=== PATIENT | male | born 1955 | race Caucasian/White ===

== ENCOUNTER 2025-03-13 14:03 | Emergency (ER) | payer BC ==
[~2025-03-13] VITALS: Ht 177.8 cm; Wt 84.1 kg
--- NOTE | 2025-03-13 18:16 | Physician Documentation ---
History of Present Illness ~ Chief Complaint: See Chief Complaint Stated Complaint: STOMACH PROBLEMS Time Seen by MD: 15:50 HPI Patient is seen today with complaints of generalized fatigue and generalized abdominal/stomach upset. Patient states he is unable to tolerate eating much food and has lost 10 lb over the last few weeks. Patient denies previously having had an upper endoscopy or colonoscopy but states he did have Cologuard test done recently that returned unremarkable. Patient does admit to history of very elevated LFTs as well as abdominal aortic aneurysm. Patient denies any chest pain or shortness of breath or vomiting or diarrhea. Patient does admit to some baseline nausea. Medication Reconciliation Allergies: Coded Allergies: No Known Allergies (Unverified , 03/13/25) Review of Systems Constitutional: Denies: chills, fever, weakness Eyes: Denies: pain, blurred vision ENT: Denies: ear pain, nose pain, throat pain, mouth pain Respiratory: Denies: cough, shortness of breath Cardiovascular: Denies: chest pain, palpitations Gastrointestinal: Denies: abdominal pain, nausea, vomiting Genitourinary: Denies: burning, dysuria Male Genitalia: Denies: penile discharge, testicular pain Neurological: Denies: headache, dizziness Musculoskeletal: Denies: pain, swelling Integumentary: Denies: rash, lesions Allergic/Immunologic: Denies: hives, itching Hematologic/Lymphatic: Denies: no symptoms reported Psychiatric: Denies: depression, anxiety Physical Exam Vital Signs: Temperature: 97.1, Source: Temporal, Heart Rate: 98, Respiratory Rate: 18, BP: 156/107, Pulse Oximetry: 99, Weight: 84.090 Oxygen Flow Rate: 0 Physical Exam General: Awake and Alert, no acute distress. HEENT: Conjunctiva pink, Sclera clear, Mucus Membranes moist. Neck: Supple without masses and tenderness. Resp: Unlabored. Lungs clear to auscultation bilaterally. Heart: Regular Rate and rhythm, normal S1 and S2 without murmur, rub or gallop. Abdomen: Patient on exam does have mild diffuse tenderness to palpation without any significant guarding and no rebound and mild right upper quadrant and epigastric tenderness to palpation. No masses. Abdomen is soft and nondistended. Extremities: No cyanosis,clubbing or edema. Skin: Warm and Dry. Progress Results/Orders Results/Orders Orders - ARIS DO MD Ultrasound Of Abdomen (03/13/25 20:18) Page Hospitalist (03/13/25 21:38) Fill Out Med Reconciliation (03/13/25 21:38) Completed Orders - ARIS DO MD Ultrasound Of Abdomen (03/13/25 20:18) Normal Saline 1000ml (0.9% Sodium Chlori (03/13/25 20:25) Piperacillin/Tazo 3.375gm/50ml (Zosyn 3. (03/13/25 21:40) Morphine 4mg/Ml Inj. (Morphine Inj.) (03/14/25 03:20) Normal Saline 1000ml (0.9% Sodium Chlori (03/14/25 04:50) Vital Signs 03/13/25 03/13/25 03/13/25 03/13/25 14:06 16:00 18:03 19:03 Temp 97.1 97.9 Pulse 98 74 62 Resp 18 18 18 16 B/P (MAP) 156/107 175/95 (121) 160/85 (110) Pulse Ox 99 97 98 O2 Flow Rate 0 0 0 03/13/25 03/13/25 03/13/25 03/13/25 20:11 21:01 22:14 23:15 Temp 97.9 Pulse 79 60 63 52 Resp 16 16 16 B/P (MAP) 154/90 (111) 147/79 (101) 159/81 (107) Pulse Ox 99 99 96 O2 Flow Rate 0 0 0 03/14/25 03/14/25 03/14/25 03/14/25 00:07 02:06 05:11 06:30 Temp 97.9 Pulse 55 54 53 54 Resp 16 B/P (MAP) 163/74 (103) 132/53 (79) 135/79 (97) 144/73 (96) Pulse Ox 94 94 98 99 O2 Flow Rate 0 0 0 0 03/14/25 03/14/25 03/14/25 03/14/25 07:16 07:30 08:30 09:30 Pulse 60 72 57 Resp 18 18 16 B/P (MAP) 144/73 (96) 138/82 (100) 139/95 (110) Pulse Ox 98 98 98 O2 Flow Rate 0 0 0 03/14/25 03/14/25 03/14/2503/14/25 10:30 11:30 12:30 13:30 Pulse 54 66 64 69 Resp 16 18 20 18 B/P (MAP) 144/73 (96) 151/59 (89) 170/64 (99) 149/74 (99) Pulse Ox 94 94 97 94 O2 Flow Rate 0 0 0 0 03/14/25 03/14/25 03/14/25 14:30 15:22 15:43 Temp 97.9 Pulse 64 66 66 Resp 16 16 16 B/P (MAP) 138/72 (94) 148/86 (106) 148/86 Pulse Ox 96 95 95 O2 Flow Rate 0 0 Laboratory Tests Test 03/13/25 18:29 03/13/25 20:14 White Blood Count 7.8 Red Blood Count 5.64 Hemoglobin 15.6 Hematocrit 45.8 Mean Corpuscular Volume 81.3 Mean Corpuscular Hemoglobin 27.7 Mean Corpuscular Hemoglobin Concent 34.0 Red Cell Distribution Width 17.7 H Platelet Count 301 Mean Platelet Volume 7.4 Neutrophils (%) (Auto) 68.8 Lymphocytes (%) (Auto) 19.5 L Monocytes (%) (Auto) 8.1 Eosinophils (%) (Auto) 2.8 Basophils (%) (Auto) 0.8 Neutrophils # (Auto) 5.4 Lymphocytes # (Auto) 1.5 Monocytes # (Auto) 0.6 Eosinophils # (Auto) 0.2 Basophils # (Auto) 0.1 CBC Comment Sodium Level 138 Potassium Level 3.9 Chloride Level 101 Carbon Dioxide Level 26.1 Anion Gap 11 Blood Urea Nitrogen 8 Creatinine 1.03 Estimated GFR/1.73 m2 72 BUN/Creatinine Ratio 7.8 L Glucose Level 100 Calcium Level 9.5 Magnesium Level 2.1 Total Bilirubin 5.0 H Aspartate Amino Transf (AST/SGOT) 268 H Alanine Aminotransferase (ALT/SGPT) 511 H Alkaline Phosphatase 477 H Troponin I High Sensitivity 5 5 Pro-B-Type Natriuretic Peptide 52 Total Protein 7.5 Albumin 3.5 Globulin 4.0 Albumin/Globulin Ratio 0.9 L Lipase > 375 H Chemistry Comments Troponin I High Sens Percent Delta 0 Troponin I Hi Sens Absolute Change 0 EKG/XRAY/CT/US/VASC/MRI Ultrasound : Impression ULTRASOUND Patient: WHITNEY LAMA Medical Record: [id number] JOSEPH BEREA : 1955, Age: 69 Sex: Male Location: ER Patient Status: [facility] ER Service Date/Time: 03/13/252017 Ordering Physician: ARIS DO MD Exam: ULTRASOUND OF ABDOMEN INDICATION: suspected gallstone pancreatitis TECHNIQUE: Multiple real-time sonographic images were obtained of the Abdomen. COMPARISON: CT CT ABDOMEN PELVIS W/ IV CONTRAST on DOS: 03/13/25 FINDINGS: PANCREAS: Visualized portions are unremarkable. LIVER: Normal in size and echogenicity. No mass. GALLBLADDER: Gallstone is noted. Gallbladder wall measures 2.3 mm. Sludge is noted. Positive Florentino's sign. COMMON BILE DUCT: Measures 13 mm. RIGHT KIDNEY: Measures 10.6 cm. Normal in echogenicity. No mass. No urinary stones. No hydronephrosis. Aorta: normal limits. IVC: normal limits. OTHERS: No free fluid. IMPRESSION: 1. Acute cholecystitis is suspected with gallstone and positive Florentino's sign and slight thickening of gallbladder wall. 2. Nonspecific significant dilation of CBD. Consider MRCP if there is continued concern. Electronically Signed by:YAZMIN QUINONES MD Date & Time: 03/13/252209 Dictated by: YAZMIN QUINONES MD Dictation date and time: 03/13/252209 Primary Care Provider: NO PRIMARY CARE PROVIDER cc: ARIS DO MD ~ Medical Decision Making Findings Patient is seen today with complaints of generalized fatigue and generalized abdominal/stomach upset. Patient states he is unable to tolerate eating much food and has lost 10 lb over the last few weeks. Patient denies previously having had an upper endoscopy or colonoscopy but states he did have Cologuard test done recently that returned unremarkable. Patient does admit to history of very elevated LFTs as well as abdominal aortic aneurysm. Patient denies any chest pain or shortness of breath or vomiting or diarrhea. Patient does admit to some baseline nausea. Patient did have evidence of cholecystitis on ultrasound and labs indicate pancreatitis with possible obstructing stone. Dr. Do assuming care of patient: . Patient with evidence of choledocholithiasis leading to gallstone pancreatitis. We do not have the ability for ERCP. We are arranging transfer Departure Disposition: 51 HOSPICE/MEDICAL FACILITY Impression: Primary Impression: Cholecystitis Additional Impression: Pancreatitis due to biliary obstruction Qualified Codes: K85.10 - Biliary acute pancreatitis without necrosis or infection Condition: Stable Additional Instructions: Patient did have evidence of cholecystitis on ultrasound and labs indicate pancreatitis with possible obstructing stone. Patient was admitted for further eval consult with hospitalist and surgical team consulted. Referrals: NO PRIMARY CARE PROVIDER (PCP) Signature Scribe Signature: No scribe Attestation: The note accurately reflects work and decisions made by me.Aris Do MD 03/15/25 02:47 No scribe DAGOBERTO HUDSON Mar 13, 2025 18:16 ARIS DO MD Mar 15, 2025 02:47
[2025-03-13 18:40] LABS: MEAN PLATELET VOLUME 7.4 FL (7.4-10.4); RED CELL DISTRIBUTION WIDTH 17.7 % (11.5-14.5)
[2025-03-13] MEDS ORDERED: iohexol 300mg/ml 100ml inj. ONE (18:47)
[2025-03-13 18:55] LABS: CREATININE 1.03 MG/DL (0.60-1.10); TOTAL CARBON DIOXIDE 26.1 MMOL/L (24-32); eCRCL 70 ML/MIN; eGFR 72 ML/MIN
[2025-03-13 19:03] LABS: PRO BRAIN NATRIURETIC PEPTIDE 52 PG/ML (0-125)
--- NOTE | 2025-03-13 20:27 | RADIOLOGY REPORT ---
Exam: CT CT ABDOMEN PELVIS W/ IV CONTRAST History: abd pain COMPARISON: None Technique: Multidetector spiral CT of the abdomen and pelvis was performed from lung bases to pubic s ymphysis. Intravenous contrast was administered during this examination. Portal venous imaging was obtained. Axial, coronal and sagittal multiplanar reformats were performed by the technologist on a separate workstation. Radiation Dose : 1. Abdomen/Pelvis: CTDIvol 19.8 mGy, DLP 1052 mGy*cm. CONTRAST: Type of contrast: Omnipaque 350 Contrast injected: 100 ml Findings: Lung Bases: No acute or significant lung base finding. Normal heart size. No pleural or pericardial effusion. Liver: The liver is normal in size. No focal lesions. Normal hepatic vascular enhancement. Gallbladder and Biliary Tree: Grossly unremarkable gallbladder. Dilated common bile duct measuring u p to 1.7 cm. Spleen: Unremarkable Pancreas: The pancreas is normal in appearance without focal lesions or abnormal enhancement. Adrenal Glands: Unremarkable Kidneys: No hydronephrosis. Bladder: Unremarkable Bowel: The stomach is grossly normal in appearance. Small bowel and colon are normal in caliber and d istribution. The appendix is not visualized; however, no secondary findings of acute appendicitis id entified. Ascites: Absent Lymphadenopathy: No mesenteric, retroperitoneal or periportal lymphadenopathy. Abdominal Wall and Mesentery: Unremarkable. Vasculature: Infrarenal abdominal aortic aneurysm sac measures up to 5.1 cm in greatest diameter and with multiple focal saccular outpouching segments. No evidence of dissection. Pelvic Organs: Unremarkable Musculoskeletal: No aggressive focal bony lesions, acute fractures or dislocation. IMPRESSION: 1. Dilated common bile duct measuring up to 1.7 cm. Recommend correlation with MRCP. 2. Infrarenal abdominal aortic aneurysm sac measures up to 5.1 cm in greatest diameter and with multi ple focal saccular outpouching segments. No evidence of dissection. Radiation optimization: All CT scans at this facility use at least one of these dose optimization [place] hniques: automated exposure control mA and/or kV adjustment per patient size (includes targeted exam s where dose is matched to clinical indication) or iterative reconstruction.
[2025-03-13] MEDS: normal saline 1000ML IV soln IVB ONE (20:35)
[2025-03-13] MEDS: piperacillin/tazo 3.375gm/50ml 50 ML IV ONE (22:09)
--- NOTE | 2025-03-13 22:12 | RADIOLOGY REPORT ---
INDICATION: suspected gallstone pancreatitis TECHNIQUE: Multiple real-time sonographic images were obtained of the Abdomen. COMPARISON: CT CT ABDOMEN PELVIS W/ IV CONTRAST on DOS: 03/13/25 FINDINGS: PANCREAS: Visualized portions are unremarkable. LIVER: Normal in size and echogenicity. No mass. GALLBLADDER: Gallstone is noted. Gallbladder wall measures 2.3 mm. Sludge is noted. Positive Florentino 's sign. COMMON BILE DUCT: Measures 13 mm. RIGHT KIDNEY: Measures 10.6 cm. Normal in echogenicity. No mass. No urinary stones. No hydronephrosi s. Aorta: normal limits. IVC: normal limits. OTHERS: No free fluid. IMPRESSION: 1. Acute cholecystitis is suspected with gallstone and positive Florentino's sign and slight thickening o f gallbladder wall. 2. Nonspecific significant dilation of CBD. Consider MRCP if there is continued concern.
[2025-03-14] MEDS: morphine 4 MG/ML inj SYRINge IV ONE ×2 (03:24→15:20)
[2025-03-14] MEDS: normal saline 1000ml 1,000 ML IV ONE (05:06)
[2025-03-14 15:43] VITALS: BP 148/86; PULSE 66; RESP 16; TEMP 97.9; O2SAT 95
== END 2025-03-14 15:45 | disposition admitted as inpatient to this hospital (09) ==
LOC: ER 14:04
DX: K81.9 Cholecystitis, unspecified (principal); K83.1 Obstruction of bile duct; R06.02 Shortness of breath; Z79.899 Other long term (current) drug therapy
CPT/HCPCS: 36415; 74177; 76700; 80053; 83690; 83735; 83880; 84484; 85025; 96361; 96365; 96366; 96375; 96376; 99285; J2270; J2543; J7030; Q9967